=== PATIENT | male | born 1940 | race Caucasian/White ===

== ENCOUNTER → 2016-09-23 | Outpatient (CLI) | payer MEDICARE, OTHER ==
[2016-09-23 14:31] VITALS: BP 122/75
--- NOTE | 2016-09-23 14:31 | Urgent Care T Sheet Gen (E) ---
Intake General Temperature (Fahrenheit): 99.1 Pulse: 85 Blood Pressure Systolic: 122 Blood Pressure Diastolic: 75 Respirations: 18 SPO2: 97 Description of Symptoms Patient presents requesting suture removal. Patient lives in [facility] and had a basal cell carcinoma removed approx 11 days ago from the R side of his neck. Patient is currently traveling therefore wasn't able to f/u with baseball winder to have sutures removed. Denies any issues with the area. Has kept it clean and covered. No fever. Respiratory Constitutional Symptoms: No syptoms reported EENTM: No symptoms reported Respiratory: No symptoms reported Cardiovascular: No symptoms reported Skin: Lesions All Other Systems Reviewed Remaining Systems: All other systems reviewed with negative findings Physical Exam Physical Exam General Appearance: WD/WN No apparent distress Skin Exam: Other (examination of the R neck reveals a healing wound. excised area is approx 2inch in length. skin is healing well, no redness, no gaps. 3 knots are seen.) Neurologic/Psychiatric Exam: No sensory deficits (to surrounding area) Procedures/Interventions Suture/Wound Check : Suture/Wound Check: Sutures removed/provider Progress 3 knots were noted within the excisional area. 1 on each corner and 1 in the middle portion. All 3 sutures were removed without issue. The proximal skin flap wasn't completely tacked down once the suture was removed, therefore I used Dermabond to close the area. Departure Urgent Care Impression Impression: Primary Impression: Visit for suture removal Departure Disposition: 01 HOME OR SELF-CARE Condition: Stable Additional Instructions: Dermabond will wear off in a few days. Keep area clean and dry. No need to cover. F/U with baseball winder as directed Skin will continue to heal and tautness will lessen with time. Patient understands DC instructions. All questions were answered. End of report . SANTHOSH YOUNG September 23, 2016 14:31
== END ==
LOC: MHUC 13:31
PROVIDERS: ATTEND Physician Assistant
DX: Z48.02 Encounter for removal of sutures (principal)
CPT/HCPCS: 99213